=== PATIENT | male | born 1975 | race Caucasian/White ===

== ENCOUNTER → 2016-10-01 | Outpatient (CLI) | payer OTHER ==
[2014-05-01 09:15] VITALS: BP 157/108
--- NOTE | 2016-10-01 09:42 | RAD ---
Examination: X-rays of the left knee. Clinical history: Left leg pain, disability check-up. Technique: Three views of the left knee were obtained. Comparison: None available. Findings: Laterally and medially placed metallic plates are seen associated with the proximal tibia, with mult iple associated screws also noted, internally fixating an old healed fracture of the proximal tibia, which is healed without residual deformity. Periarticular osteopenia is noted at the knee. No acute fracture, dislocation, or destructive bony lesion is noted. No joint effusion or soft tissue abnormality is noted. Impression: 1. Old healed fracture of the proximal tibia, as described above. 2. Periarticular osteopenia is noted at the knee. Reported By:
== END | disposition home or self-care (01) ==
LOC: RAD 08:58
PROVIDERS: ATTEND Internal Medicine
DX: Z02.71 Encounter for disability determination (principal); M85.88 Other specified disorders of bone density and structure, other site
CPT/HCPCS: 73560